=== PATIENT | male | born 1935 | race Caucasian/White ===

== ENCOUNTER → 2017-02-18 | Outpatient (CLI) | payer MEDICARE, OTHER | END | disposition disaster alternative care site (69) | LOC: GRAD 06:29 | DX: M79.89 Other specified soft tissue disorders (principal); M79.605 Pain in left leg; N40.0 Benign prostatic hyperplasia without lower urinary tract symptoms; Q61.02 Congenital multiple renal cysts; I70.90 Unspecified atherosclerosis; K76.0 Fatty (change of) liver, not elsewhere classified; K57.90 Diverticulosis of intestine, part unspecified, without perforation or abscess without bleeding; I51.7 Cardiomegaly; J98.11 Atelectasis; M47.816 Spondylosis without myelopathy or radiculopathy, lumbar region ==